=== PATIENT | male | born 1965 | race Caucasian/White ===

== ENCOUNTER 2019-01-12 10:30 | Emergency (ER) | payer BC ==
--- NOTE | 2019-01-12 11:22 | EDM.PDOC ---
ED HPI GENERAL MEDICAL PROBLEM - General Chief Complaint: General Stated Complaint: left lower extremity cellulitis Time Seen by Provider: 01/12/19 11:00 Source of Information: Reports: Patient History Limitations: Reports: No Limitations - History of Present Illness INITIAL COMMENTS - FREE TEXT/NARRATIVE: 53 YO WM presents to ER with complaints of left lower extremity swelling and pain which has worsened x 2 days. Pt with history of chronic venous stasis and recurrent lower extremity cellulitis with stasis ulcer on left lower extremity/ lateral calf. [place]. Pt is followed by wound clinic in [place]. Pt reports the last 2 days his leg has become more swollen with warmth similar to previous episode of cellulitis. Pt states he recently finished a course of antibiotics 2 weeks ago for same complaint. Pt denies fever /chills, no nausea/vomiting, no shortness of breath or chest pain. Pt is here for antibiotic treatment. Pt states he will follow up in wound clinic 2018. Duration: Chronic, Recurring Location: Reports: Lower Extremity, Left Quality: Reports: Ache Severity: Mild Improves with: Reports: None Worsens with: Reports: None Associated Symptoms: Reports: No Other Symptoms. Denies: Fever/Chills, Nausea/ Vomiting left leg Pain Score (Numeric/FACES): 5 - Related Data Allergies Allergy/AdvReac Type Severity Reaction Status Date / Time No Known Allergies Allergy Verified 01/12/19 10:56 Home Meds: Home Meds Furosemide [Lasix] 40 mg PO DAILY 01/12/19 [History] Mupirocin Oint [Bactroban Oint] 22 gm .XX TID #22 tube 01/12/19 [Rx] Penicillin V Potassium 500 mg PO BID 01/12/19 [History] Sulfamethoxazole/Trimethoprim [Septra DS] 1 each PO BID #20 tab 01/12/19 [Rx] Past Medical History HEENT History: Reports: Cataract, Impaired Vision Gastrointestinal History: Reports: Other (See Below) Other Gastrointestinal History: MORRISON - Past Surgical History HEENT Surgical History: Reports: Cataract Surgery Social & Family History - Family History Family Medical History: Noncontributory - Tobacco Use Smoking Status *Q: Never Smoker - Caffeine Use Caffeine Use: Reports: Soda - Recreational Drug Use Recreational Drug Use: No ED ROS GENERAL - Review of Systems Review Of Systems: See Below Constitutional: Reports: No Symptoms HEENT: Reports: No Symptoms Respiratory: Reports: No Symptoms Cardiovascular: Reports: No Symptoms Endocrine: Reports: No Symptoms GI/Abdominal: Reports: No Symptoms : Reports: No Symptoms Musculoskeletal: Reports: No Symptoms Skin: Reports: No Symptoms Neurological: Reports: No Symptoms Psychiatric: Reports: No Symptoms Hematologic/Lymphatic: Reports: No Symptoms Immunologic: Reports: No Symptoms ED EXAM, GENERAL - Physical Exam Exam: See Below Exam Limited By: No Limitations General Appearance: Alert, WD/WN, No Apparent Distress Throat/Mouth: Normal Inspection, Normal Lips, Normal Teeth, Normal Gums, Normal Oropharynx, Normal Voice, No Airway Compromise Head: Atraumatic, Normocephalic Neck: Normal Inspection, Supple, Non-Tender, Full Range of Motion Respiratory/Chest: No Respiratory Distress, Lungs Clear, Normal Breath Sounds, No Accessory Muscle Use, Chest Non-Tender Cardiovascular: Normal Peripheral Pulses, Regular Rate, Rhythm, No Edema, No Gallop, No JVD, No Murmur, No Rub GI/Abdominal: Normal Bowel Sounds, Soft, Non-Tender, No Organomegaly, No Distention, No Abnormal Bruit, No Mass Back Exam: Normal Inspection, Full Range of Motion, NT Extremities: Normal Inspection, Normal Range of Motion, No Pedal Edema, Normal Capillary Refill, Leg Pain Neurological: Alert, Oriented, CN II-XII Intact, Normal Cognition, Normal Gait, Normal Reflexes, No Motor/Sensory Deficits Psychiatric: Normal Affect, Normal Mood Skin Exam: Warm, Erythema, Increased Warmth Lymphatic: No Adenopathy Course - Vital Signs Last Recorded V/S: Last Vital Signs Temp 36.4 C 01/12/19 10:55 Pulse 84 01/12/19 10:55 Resp 16 01/12/19 10:55 BP 159/89 H 01/12/19 10:55 Pulse Ox 98 01/12/19 10:55 Departure - Departure Time of Disposition: 11:34 Disposition: Home, Self-Care 01 Condition: Good Clinical Impression: Cellulitis of left leg, Chronic venous stasis - Discharge Information Prescriptions: Mupirocin Oint [Bactroban Oint] 22 gm .XX TID #22 tube Sulfamethoxazole/Trimethoprim [Septra DS] 1 each PO BID #20 tab Instructions: Chronic Venous Insufficiency, Cellulitis, Adult, [id number] Referrals: Muna Martins MD [Primary Care Provider] - Additional Instructions: 1. discharge home 2. septra DS 1 tablet twice a day x 10 days 3. bactroban ointment- apply to wound 3 x/day 4. elevate legs 5. follow up in wound clinic 01/17/2019 as scheduled 6. return to ER for worsening symptoms - Assessment/Plan Assessment:: 1. Chronic venous stasis 2. left lower extremity cellulitis Plan: 1. discharge home 2. septra DS 1 tablet twice a day x 10 days 3. bactroban ointment- apply to wound 3 x/day 4. elevate legs 5. follow up in wound clinic 01/17/2019 as scheduled 6. return to ER for worsening symptoms
[2019-01-12] MEDS: cefTRIAXone 1 GM Vial IM ONE (11:45)
== END 2019-01-12 11:50 | disposition home or self-care (01) ==
LOC: KA.ED 10:30
DX: L03.116 Cellulitis of left lower limb (principal); I87.8 Other specified disorders of veins; Z79.899 Other long term (current) drug therapy
CPT/HCPCS: 96372; 99282; J0696